=== PATIENT | male | born 1945 | race Caucasian/White ===

== ENCOUNTER 2017-01-05 15:05 | Emergency (ER) | payer OTHER ==
[2017-01-05 15:17] VITALS: BP 153/67
--- NOTE | 2017-01-05 15:39 | ED EKG INTERP ---
EKG Interpretation - EKG Time of EKG reading by physician:: 15:23
--- NOTE | 2017-01-05 15:47 | Diag Imaging Result Document ---
PROCEDURE NAME: CHEST-2 VIEWS - 01/05/2017 FRONTAL AND LATERAL CHEST, TWO VIEWS: COMPARISON: 07/24/2015. FINDINGS: The lungs are well expanded. There are no contusions or pneumothoraces. The mediastinum is not widened. No pleural effusions. No compressed thoracic vertebra or other bony abnormality. IMPRESSION: I do not identify an injury.
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
== END 2017-01-05 16:43 | disposition home or self-care (01) ==
LOC: ED 15:05
DX: M94.0 Chondrocostal junction syndrome [Tietze] (principal); M25.50 Pain in unspecified joint; Q61.3 Polycystic kidney, unspecified; V43.53XA Car driver injured in collision with pick-up truck in traffic accident, initial encounter; Z87.891 Personal history of nicotine dependence; Z79.899 Other long term (current) drug therapy
CPT/HCPCS: 71020; 93005